=== PATIENT | female | born 1935 | race Caucasian/White ===

== ENCOUNTER 2016-10-08 14:29 | Emergency (ER) | payer OTHER, MEDICARE ==
[~2016-10-08 14:29] MED LIST: BETAPACE AF80 MG PO; COUMADIN2.5 MG PO; COZAAR50 MG PO; KEFLEX750 MG PO; LASIX40 MG PO; METOPROLOL SUC100 MG PO; NORCO1 TA1 PO; ZOCOR20 MG PO
--- NOTE | 2016-10-08 19:26 | DIAGNOSTIC IMAGING REPORT ---
PROCEDURE: XR CHEST 2 VIEW INDICATION: COUGH TECHNIQUE: Two views. COMPARISON: 02/25/2015 FINDINGS: There is a left-sided dual lead pacemaker in place, stable. The heart has slightly increased in size. There is aortic calcification of the arch. No central venous congestion. Lungs are clear. No pleural effusion or pneumothorax. Demineralized osseous structures. IMPRESSION: 1. Slight increase in mild cardiomegaly compared to previous study. 2. The lungs are clear.
--- NOTE | 2016-10-08 19:49 | ED CLINICAL REPORT ---
Clinical Report - Physicians/Mid Levels [facility] [address] [place] [address] 10/08/2016 14:30 Patient: JORDON DEVLIN Time Seen: 14:46. Arrived- By private vehicle. Historian- patient. HISTORY OF PRESENT ILLNESS Chief Complaint: COUGH. This started about 8 days ago and is still present. The illness is described as moderate. The patient has had a cough, nasal congestion and a nasal discharge. She has had moderate amounts of thick sputum. No difficulty breathing, chest discomfort or pain, fever or muscle aches. No chills, sore throat, hoarseness, sinus pressure or sinus drainage. No ear pain. (PT reports feeling somewhat fatigued.). Additional history - No known contact with a sick individual. Similar symptoms previously: Occasionally. Recent medical care: Not recently seen/assessed. REVIEW OF SYSTEMS No headache, eye discomfort, nausea, vomiting or diarrhea. No abdominal pain, hay fever, pedal edema, calf pain or difficulty with urination. No skin rash, enlarged lymph nodes or joint pain. All systems otherwise negative, except as recorded above. PAST HISTORY Problems: Hip Fracture. Diabetes Mellitus. Gastroesophageal Reflux Disease. Myocardial Infarction. Congestive Heart Failure. Pacemaker. Atrial Fibrillation. Hypertension. Coronary Artery Disease. Immunizations. Additional Surgeries: Angioplasty with Stents. Appendectomy. Cholecystectomy. Hip Surgery. Pacemaker. Medications: Sotalol HCl Oral 80 mg, 2x a day. Toprol XL Oral 100 mg, daily. Vit d. Zocor Oral 20 mg, daily. Calcium. Coumadin Oral (2 mg - M,W,F 2.5 mg - Tu,Yin,S,S). KCL 10 meq, daily. Lasix Oral. Losartan Potassium Oral 50 mg, daily. Protonix Oral. Allergies: Atolat. Probable Moderate (Unsure reaction) Oxycodone. Definite Moderate (Hallucinations/confusion). SOCIAL HISTORY Never smoker. No alcohol use or drug use. ADDITIONAL NOTES The nursing notes have been reviewed. PHYSICAL EXAM Vital Signs: 10/08/2016 14:56 BP: 139/111. HR: 67. RR: 16. O2 saturation: 98%. Temp: 98.8 F. Pain level now: 0/10. Have been reviewed. Appearance: Alert. No acute distress. Eyes: Pupils equal, round and reactive to light. Eyes normal inspection. ENT: Nose normal. Neck: Normal inspection. CVS: Normal heart rate and rhythm. Heart sounds normal. Pulses normal. Respiratory: No respiratory distress. Breath sounds normal. Abdomen: Soft and nontender. Back: Normal inspection. Skin: Skin warm and dry. Normal skin color. No rash. Normal skin turgor. Extremities: Extremities exhibit normal ROM. No lower extremity edema. Neuro: Oriented X 3. No motor deficit. No sensory deficit. LABS, X-RAYS, AND EKG EKG: No acute ischemia. Rate: 84. Atrial fibrillation. Occasional ectopic beats. Premature ventricular contractions. Abnormal P waves. Normal QRS complex. Normal axis. Normal QT and QTc. Non-specific ST segment / T wave abnormalities. Prior EKG unavailable. The study has been interpreted contemporaneously by me. The study has been independently viewed by me. The EKG appears to be a good tracing. I agree with and confirm the computer reading of the EKG. Rhythm Strip #1: Time: (1615). Rate= 92. Atrial fibrillation. Narrow QRS complexes. Irregularly irregular rhythm. No ectopy. Conduction normal. Normal ST segments and T waves. The study was interpreted by me. Chest X-ray: No acute disease. Normal lung markings present. Normal heart size. Mediastinum normal. Great vessels normal. Soft tissues normal. No infiltrate. No fracture. No bony lesion present. Views: PA and lateral. Technique: good. The X-rays were independently viewed by me, interpreted by the radiologist and contemporaneously by me and discussed with the radiologist. Prior films were not available for comparison. Laboratory Tests: UA-Culture if indicated: (BETH: 10/08/2016 16:00) ( MsgRcvd 10/08/2016 16:49) Final results Test Result Flag Units (Reference) URINE COLOR YELLOW URINE APPEARANCE CLEAR URINE GLUCOSE NEGATIVE (NEGATIVE) URINE BILIRUBIN NEGATIVE (NEGATIVE) URINE KETONE NEGATIVE (NEGATIVE) URINE SPECIFIC GRAVITY <= 1.005 L (1.010-1.030) URINE PH 7.0 (5.0-8.0) URINE PROTEIN NEGATIVE (NEGATIVE) URINE UROBILINOGEN 0.2 EU/dL (0.2-1.0) URINE NITRITE NEGATIVE (NEGATIVE) URINE BLOOD NEGATIVE (NEGATIVE) URINE LEUK ESTERASE NEGATIVE (NEGATIVE) URINE RBC 0-1 rbc/hpf (0-1) URINE WBC 0-1 wbc/hpf (0-1) URINE EPITHELIAL CELLS 1-3 EPI/hpf (0-5) URINE BACTERIA NONE SEEN (NONE SEEN) URINE COMMENT CULT NOT INDICATED URINE CULTURES ARE SET-UP BASED ON THE FOLLOWING CRITERIA:POSITIVE NITRITEPOSITIVE LEUKOCYTE ESTERASEGREATER THAN 10 WHITE BLOOD CELLSMODERATE (2+) OR GREATER BACTERIA CBC w Diff: (BETH: 10/08/2016 16:05) ( MsgRcvd 10/08/2016 16:33) Final results Test Result Flag Units (Reference) WHITE BLOOD COUNT 6.4 K/uL (4.5-11.5) RED BLOOD COUNT 5.09 M/uL (4.00-5.20) HEMOGLOBIN 15.1 gm/dL (12.0-16.0) HEMATOCRIT 45.6 % (36.0-46.0) MEAN CELL VOLUME 90 fL (80-100) MEAN CORPUSCULAR HGB 30 pg (26-34) MEAN CORPUSCULAR HGB CONC 33 g/dL (31-37) RED CELL DISTRIBUTION WIDTH 13.3 % (11.6-14.8) PLATELET COUNT 183 K/uL (150-400) NEUTROPHIL % 60.7 % (50-75) LYMPH % 25.9 % (25-40) MONO % 11.3 % (3-14) EOSINOPHIL % 1.8 % (0-4) BASOPHIL % 0.3 % (0-2) CHEM 13 PANEL: (BETH: 10/08/2016 16:05) ( MsgRcvd 10/08/2016 16:45) Final results Test Result Flag Units (Reference) GLUCOSE 101 mg/dL (70-110) BUN 20 H mg/dL (7-18) CREATININE 0.8 mg/dL (0.6-1.3) Estimated GFR >60 mL/min Estimated GFR- >60 mL/min Note: Persistent reduction over 3 months in eGFR<60 mL/min/1.73 m2 defines CKD. Patients with eGFR values>=60 mL/min/1.73 m2 may also have CKD if evidence ofpersistent proteinuria. Additional information may be foundat www.kidney.org. SODIUM 142 mmol/L (136-145) POTASSIUM 4.2 mmol/L (3.5-5.1) CHLORIDE 105 mmol/L (98-107) CARBON DIOXIDE 26 mmol/L (21-32) CALCIUM 9.0 mg/dL (8.5-10.1) TOTAL PROTEIN 6.8 g/dL (6.4-8.2) ALBUMIN 3.7 g/dL (3.3-5.0) BILIRUBIN, TOTAL 0.8 mg/dL (0.0-1.0) ALKALINE PHOSPHATASE 90 U/L (46-116) AST (SGOT) 34 U/L (15-37) ALT (SGPT) 34 U/L (12-78) CPK 47 U/L (24-260) MAGNESIUM 2.1 mg/dL (1.8-2.4) TROPONIN I <0.05 ng/mL (0.00-1.5) TROPONIN REFERENCE RANGE:<0.1 NEGATIVE0.1-1.5 INDETERMINANT>1.5 POSITIVE . Pulse Oximetry: 10/08/2016 14:56 O2 saturation: 98%. (FIO2 - room air). Interpretation: normal. PROGRESS AND PROCEDURES Course of Care: Pt was worked up for her cough and fatigue. Work-up was unremarkable. I suspected bronchitis, and pt was treated for this with Zithromax. No emergent condition identified. Patient and spouse counseled in person regarding the patient's stable condition, test results, diagnosis and need for follow-up. Concerns were addressed. Old medical records reviewed. Disposition: Discharged. Condition: stable. CLINICAL IMPRESSION Acute bacterial bronchitis. INSTRUCTIONS Drink plenty of fluids. Warnings: GENERAL WARNINGS: Return or contact your physician immediately if your condition worsens or changes unexpectedly, if not improving as expected, or if other problems arise. Your Current Medications: CONTINUE TAKING THE FOLLOWING MEDICATIONS: Calcium*. Coumadin Oral : 2 mg - M,W,F 2.5 mg - Tu,Yin,S,S. KCL : 10 meq daily. Lasix Oral. Losartan Potassium Oral : 50 mg daily. Protonix Oral. Sotalol HCl Oral : 80 mg 2x a day. Toprol XL Oral : 100 mg daily. Vit d*. Zocor Oral : 20 mg daily. Prescription Medications: Zithromax Z-John: Take according to package instructions 2 orally today, followed by 1 orally every day for the next 4 days. Total course 5 days. No refills. Substitution is permissible. Follow-up: Follow up with your doctor in seven days if not better. Call for an appointment. Understanding of the discharge instructions verbalized by patient. (Electronically signed by Patrizia Fleming MD 10/13/2016 5:59)
--- NOTE | 2016-10-08 19:49 | ED ORDER SUMMARY ---
..... Patient: JORDON DEVLIN OrderSheet [facility] VisitID: [id number] [address] [place] [address] 81y, F Registration Date/Time: 10/08/2016 ORDER SHEET Weight: 75.2 kg (stated) Allergies: Atolat, Oxycodone GENERAL ORDERS: Chancery Clerk (Continuous) (Chest Pain) (15:59 10/08/2016 Jesus R.N. verbal order read back to Anshu PHILLIPS) (15:59 Jesus R.N.) EKG - ER Stat (15:59 10/08/2016 Jesus R.N. verbal order read back to Anshu PHILLIPS) (16:24 Santo) UA-Culture if indicated Urgent (16:17 10/08/2016 Jesus R.N. verbal order read back to Anshu PHILLIPS) (16:39 Santo) Cardiac Panel Stat (16:18 10/08/2016 Jesus R.N. verbal order read back to Anshu PHILLIPS) (Ack 16:41 Santo) (17:56 Jesus R.N.) Chest 2V Urgent (17:42 10/08/2016 Anshu PHILLIPS) (17:51 Slim) MEDICATION ORDERS: Zithromax PO 500 mg (NOW) (18:56 10/08/2016 Anshu PHILLIPS) (Ack 19:02 JDeElena R.N.) (19:12 JDeElena R.N.) IV FLUIDS: IV Saline Lock (15:59 10/08/2016 Jesus R.N. verbal order read back to Anshu PHILLIPS) (16:17 Jesus R.N.) ORDER SHEET NOTES: [Electronically signed by Carolyn Hobbs (23:27 10/08/2016)] [Electronically signed by Patrizia Fleming MD (05:59 10/13/2016)] [Electronically locked/signed by Carolyn Hobbs (23:27 10/08/2016)]
--- NOTE | 2016-10-08 19:49 | ED NURSING NOTES ---
Clinical Report - Nurses [facility] [address] [place] [address] 10/08/2016 14:30 [id number] Triage time 14:56 Oct 08 2016. Acuity: LEVEL 3. Chief Complaint: COUGH. Alert. ABDELRAHMAN COMA SCORE: Abdelrahman Coma Scale: 15- eyes open spontaneously (4); best verbal response- oriented x 4 (5); best motor response- obeys commands (6). --15:08 Don Perez R.N. 14:56 10/08/16. BP: 139/111. HR: 67 (irregularly-irregular and normal rate). RR: 16. O2 saturation: 98% on room air. Temp: 98.8 F (oral). Pain level now: 0/10. --15:08 Don Perez R.N. 15:15 10/08/16. BP: 131/78. Additional comments: Repeat check on BP. --15:16 Don Perez R.N. Weight: 75.2 kg stated. Height/Length: 64.5 inches Per Patient. BMI: 28. --14:59 Don Perez R.N. Medications Calcium. Coumadin Oral (2 mg - M,W,F 2.5 mg - Tu,Yin,S,S). KCL 10 meq, daily. Lasix Oral. Losartan Potassium Oral 50 mg, daily. Protonix Oral. --15:04 Don Perez R.N. Sotalol HCl Oral 80 mg, 2x a day. Toprol XL Oral 100 mg, daily. Vit d. Zocor Oral 20 mg, daily. --15:04 Don Perez R.N. Allergies Atolat. Probable Moderate (Unsure reaction) --15:04 Don Perez R.N. Oxycodone. Definite Moderate (Hallucinations/confusion) --15:04 Don Perez R.N. Medication/allergy information source: the patient. --15:08 Ana, Don, R.N. History ( Cough for the last 8 days and some chest pain on the (R) lower chest, which resolved after she took 2 sequential NTG SL tabs.). Onset. (about 8 days ago). She has had fatigue and a headache. ( Cough). Treatment ACCOUNT ANALYST: (NTG x 2 SL). PAST MEDICAL HX: Immunizations: status is unknown. The patient is post-menopausal. SOCIAL HX: Never smoker. No alcohol use or drug use. No infectious disease exposure. ABUSE ASSESSMENT: No report of abuse. FALL RISK ASSESSMENT: Fall risk assessment completed. No fall risk identified. NUTRITIONAL RISK ASSESSMENT: The nutritional risk assessment revealed no deficiencies. FUNCTIONAL ASSESSMENT: Functional assessment: no impairments noted. LEARNING NEEDS ASSESSMENT: The learning needs assessment revealed no barriers. SKIN INTEGRITY ASSESSMENT: Skin integrity risk assessment completed. No skin integrity risk identified. --15:08 Don Perez R.N. PROBLEMS: Hip Fracture. Prior Injury, Same Area. Diabetes Mellitus. Gastroesophageal Reflux Disease. Myocardial Infarction. Congestive Heart Failure. Pacemaker. Atrial Fibrillation. Hypertension. Coronary Artery Disease. Arrhythmia. Heart Disease. Immunizations. --15:07 Don Perez R.N. ADDITIONAL SURGERIES: Angioplasty with Stents. Appendectomy. Cholecystectomy. Hip Surgery. Pacemaker. --15:07 Don Perez R.N. Interventions ID band on patient. To treatment room. --15:08 Don Perez R.N. PHYSICAL ASSESSMENT Ambulatory to room. GENERAL / NEURO / PSYCH: Alert. Oriented X 4. HEENT: Voice within normal limits. Mucous membranes are pink. RESPIRATORY: Respirations not labored. CVS: Cardiac rhythm: atrial fibrillation. Capillary refill less than 2 seconds. SKIN: Skin is warm and dry. Normal skin turgor. --15:08 Don Perez R.N. NURSING PROGRESS NOTES Patient gowned. Reassurance given. Patient identifiers checked. Call light placed in reach. Side rails up x 1. Bed placed in lowest position. Brakes of bed on. Patient ready for evaluation- chart flagged and ED physician notified. --15:09 Don Perez R.N. 16:05 10/08/2016 Site #1 started via IV in the right hand with an 20g angiocath, with aseptic technique and good blood return; one attempt. Blood drawn: rainbow set. Labeled in the presence of the patient and sent to the lab. Saline lock flushed with 10 mL saline. --16:17 Don Perez R.N. 16:10 10/08/16. Patient ID band checked for patient name, birthdate and medical record number: patient confirmed. Instructions provided to collect clean catch urine and patient verbalized understanding. Clean catch urine collected with return of yellow-colored clear urine; odor is normal; sample sent to lab for urinalysis and culture. Specimen labeled in the presence of the patient. --16:35 Don Perez R.N. 16:15. Patient ID band checked for patient name and birthdate: patient confirmed urine collected with return of yellow-colored clear urine; odor is normal; sample sent to lab for urinalysis and culture. Specimen labeled in the presence of the patient. --16:42 Rosi Brooks 16:30 10/08/16. BP: 116/71. HR: 83 (irregularly-irregular). RR: 19. O2 saturation: 97% on room air. Pain level now: 0/10. --18:34 Don Perez R.N. 17:15 10/08/16. BP: 140/76. HR: 89 (irregularly-irregular). RR: 18. O2 saturation: 96% on room air. Pain level now: 0/10. --18:35 Don Perez R.N. 18:15 10/08/16. BP: 145/92. HR: 117 (irregularly-irregular). RR: 16. O2 saturation: 98% on room air. Pain level now: 0/10. --18:37 Don Perez R.N. Care transferred and report received (Don, RN). --19:02 Luis Mays R.N. 19:12 10/08/2016 Zithromax PO Tablets 500 mg given. Allergies verified and confirmed 5 rights. --19:12 Luis Mays R.N. The patient is calm and resting quietly. GENERAL / NEURO / PSYCH: Alert. Appears in no acute distress. [place] Coma Scale: 15- eyes open spontaneously (4); best verbal response- oriented x 4 (5); best motor response- obeys commands (6). Oriented X 4. The patient is cooperative. RESPIRATORY: No respiratory distress. Breath sounds normal. CVS: Abnormal heart sounds: (Irregularly-regualr). SKIN: Skin is warm and dry. Skin color is within normal limits for race. --19:15 Luis Mays R.N. 19:12 10/08/16. BP: 159/100 (regular adult cuff) taken on the left arm, via an automated monitor, while lying. HR: 80 (irregular and normal rate). RR: 16 (regular, unlabored and normal). O2 saturation: 98% on room air. --19:15 Luis Mays R.N. DISPOSITION / DISCHARGE 20:01 10/08/16. Condition at departure: stable. No learning barriers present. Reviewed medication(s) side effects, precautions, dosing and course information. Prescription(s) given to the patient. Reviewed need for increased fluid intake. Patient and spouse verbalized understanding. Written instructions provided in Georgian. ( Follow up with PCP in one week. Return if symptoms worsen. Reviewed allergic reaction symptoms.). The patient was discharged by the physician. She was discharged home and accompanied by spouse. She left the Emergency Department ambulatory and via private vehicle. Spouse driving. --23:01 Carolyn Hobbs 20:00 10/08/16. BP: 150/80. HR: 86. RR: 20. O2 saturation: 99% on room air. Temp: 98.8 F. Pain level now: 0/10. --23:01 Carolyn Hobbs 20:01 10/08/2016 Site #1 removed upon discharge. Catheter intact. Bandaid applied. --23:01 Carolyn Hobbs 20:01 10/08/16. The goals identified in the patient's plan of care were met. FALL RISK ASSESSMENT: Fall risk assessment completed. No fall risk identified. --23:01 Carolyn Hobbs. Locked/Released at 10/08/2016 23:27 by Carolyn Hobbs,
--- NOTE | 2016-10-08 19:49 | ED ORDER SUMMARY ---
..... Patient: JORDON DEVLIN OrderSheet [facility] VisitID: [id number] [address] [place] [address] 81y, F Registration Date/Time: 10/08/2016 ORDER SHEET Weight: 75.2 kg (stated) Allergies: Atolat, Oxycodone GENERAL ORDERS: Rotor Assembler (Continuous) (Chest Pain) (15:59 10/08/2016 Jesus R.N. verbal order read back to Anshu PHILLIPS) (15:59 Jesus R.N.) EKG - ER Stat (15:59 10/08/2016 Jesus R.N. verbal order read back to Anshu PHILLIPS) (16:24 Santo) UA-Culture if indicated Urgent (16:17 10/08/2016 Jesus R.N. verbal order read back to Anshu PHILLIPS) (16:39 Santo) Cardiac Panel Stat (16:18 10/08/2016 Jesus R.N. verbal order read back to Anshu PHILLIPS) (Ack 16:41 Santo) (17:56 Jesus R.N.) Chest 2V Urgent (17:42 10/08/2016 Anshu PHILLIPS) (17:51 Slim) MEDICATION ORDERS: Zithromax PO 500 mg (NOW) (18:56 10/08/2016 Anshu PHILLIPS) (Ack 19:02 JDeElena R.N.) (19:12 JDeElena R.N.) IV FLUIDS: IV Saline Lock (15:59 10/08/2016 Jesus R.N. verbal order read back to Anshu PHILLIPS) (16:17 Jesus R.N.) ORDER SHEET NOTES: [Electronically signed by Carolyn Hobbs (23:27 10/08/2016)] [Electronically signed by Patrizia Fleming MD (05:59 10/13/2016)] [Electronically locked/signed by Carolyn Hobbs (23:27 10/08/2016)]
--- NOTE | 2016-10-13 05:59 | ED MAR SUMMARY ---
..... Medication Administration Record [facility] [address] [place] [address] Patient: JORDON DEVLIN Visit ID: [id number] 81y, F Weight: 75.2 kg Height/Length: 64.5 in BMI: 28 ALLERGIES: Oxycodone, Atolat Given 19:12 10/08/2016 Luis Mays R.N. Medication Administered: ZITHROMAX [PO], Dose: 500 mg Tablets PO. Medication Ordered: Zithromax PO 500 mg (NOW).
--- NOTE | 2016-10-13 05:59 | ED MAR SUMMARY ---
..... Medication Administration Record [facility] [address] [place] [address] Patient: JORDON DEVLIN Visit ID: [id number] 81y, F Weight: 75.2 kg Height/Length: 64.5 in BMI: 28 ALLERGIES: Oxycodone, Atolat Given 19:12 10/08/2016 Luis Mays R.N. Medication Administered: ZITHROMAX [PO], Dose: 500 mg Tablets PO. Medication Ordered: Zithromax PO 500 mg (NOW).
--- NOTE | 2016-10-13 05:59 | ED MED RECONCILIATION SUMMARY ---
Patient: JORDON DEVLIN Medication Reconciliation Report [facility] VisitID: [id number] [address] [place] [place] [address] 81y, F Registration Date/Time: 10/08/2016 Weight: 75.2 kg Height/Length: (not available) BMI: 28.0 ALLERGIES: Atolat, Oxycodone The patient's Home Medications are listed below: CONTINUE TAKING THE FOLLOWING MEDICATIONS: Calcium Coumadin Oral, 2 mg - M,W,F2.5 mg - Tu,Yin,S,S KCL 10 meq, daily Lasix Oral Losartan Potassium Oral 50 mg, daily Protonix Oral Sotalol HCl Oral 80 mg, 2x a day Toprol XL Oral 100 mg, daily Vit d Zocor Oral 20 mg, daily The source(s) of the original Home Medication information: patient The following Medications were given to the patient in the Emergency Department: Zithromax [PO] PO 500 mg, administered: 10/08/2016 7:12:00 PM The following Medications were prescribed to the patient: Zithromax Z-John: Take according to package instructions 2 orally today, followed by 1 orally every day for the next 4 days. Total course 5 days. No refills. Substitution is permissible. -- Patrizia Fleming MD
--- NOTE | 2016-10-13 05:59 | ED MED RECONCILIATION SUMMARY ---
Patient: JORDON DEVLIN Medication Reconciliation Report [facility] VisitID: [id number] [address] [place] [address] 81y, F Registration Date/Time: 10/08/2016 Weight: 75.2 kg Height/Length: (not available) BMI: 28.0 ALLERGIES: Atolat, Oxycodone The patient's Home Medications are listed below: CONTINUE TAKING THE FOLLOWING MEDICATIONS: Calcium Coumadin Oral, 2 mg - M,W,F2.5 mg - Tu,Yin,S,S KCL 10 meq, daily Lasix Oral Losartan Potassium Oral 50 mg, daily Protonix Oral Sotalol HCl Oral 80 mg, 2x a day Toprol XL Oral 100 mg, daily Vit d Zocor Oral 20 mg, daily The source(s) of the original Home Medication information: patient The following Medications were given to the patient in the Emergency Department: Zithromax [PO] PO 500 mg, administered: 10/08/2016 7:12:00 PM The following Medications were prescribed to the patient: Zithromax Z-John: Take according to package instructions 2 orally today, followed by 1 orally every day for the next 4 days. Total course 5 days. No refills. Substitution is permissible. -- Patrizia Fleming MD
--- NOTE | 2016-10-13 05:59 | ED DISCHARGE INSTRUCTIONS ---
Patient: JORDON DEVLIN General Instructions [facility] VisitID: [id number] [place] [address] 81y, F Registration Date/Time: 10/08/2016 Acute bacterial bronchitis. INSTRUCTIONS Drink plenty of fluids. Warnings: GENERAL WARNINGS: Return or contact your physician immediately if your condition worsens or changes unexpectedly, if not improving as expected, or if other problems arise. Your Current Medications: CONTINUE TAKING THE FOLLOWING MEDICATIONS: Calcium*. Coumadin Oral : 2 mg - M,W,F 2.5 mg - Tu,Yin,S,S. KCL : 10 meq daily. Lasix Oral. Losartan Potassium Oral : 50 mg daily. Protonix Oral. Sotalol HCl Oral : 80 mg 2x a day. Toprol XL Oral : 100 mg daily. Vit d*. Zocor Oral : 20 mg daily. Prescription Medications: Zithromax Z-John: Take according to package instructions 2 orally today, followed by 1 orally every day for the next 4 days. Total course 5 days. No refills. Substitution is permissible. Follow-up: Follow up with your doctor in seven days if not better. Call for an appointment. Understanding of the discharge instructions verbalized by patient. ADDITIONAL INFORMATION Bronchitis (Adult: Abx Tx) BRONCHITIS is an infection of the air passages (bronchial tubes). It often occurs during the common cold. Symptoms include cough with mucus (phlegm) and low-grade fever. Bronchitis usually lasts 7-14 days. Mild cases can be treated with simple home remedies. More severe infection is treated with an antibiotic. Home Care: If symptoms are severe, rest at home for the first 2-3 days. When you resume activity, don't let yourself get too tired. Do not smoke. Avoid being exposed to the smoke of others. You may use acetaminophen (Tylenol) or ibuprofen (Motrin, Advil) to control fever or pain, unless another medicine was prescribed for this. [NOTE: If you have chronic liver or kidney disease or ever had a stomach ulcer or GI bleeding, talk with your doctor before using these medicines.] Your appetite may be poor, so a light diet is fine. Avoid dehydration by drinking 6-8 glasses of fluids per day (water, soft, drinks, juices, tea, soup, etc.). Extra fluids will help loosen secretions in the lungs. Dvwd-yjj-yqaetbd cough medicines that containdextromethorphan(such as Robitussin DM) and decongestants (Actifed or Sudafed) may help relieve cough and congestion. [NOTE: Do not use decongestants if you have high blood pressure.] Finish all antibiotic medicine, even if you are feeling better after only a few days. Follow Up with your doctor or as directed if you dont start to feel better after three days. [NOTE: If you are age 65 or older, or if you have chronic asthma or COPD, we recommend a PNEUMOCOCCAL VACCINATION every five years and a yearly INFLUENZAVACCINATION (FLU-SHOT) every . Ask your doctor about this. If you had an X-ray, a radiologist will review it. You will be notified of any new findings that may affect your care.] Get Prompt Medical Attention if any of the following occur: Fever over 100.4F (38.0C) for more than three days Trouble breathing, wheezing or pain with breathing Coughing up blood or increased amounts of colored sputum Weakness, drowsiness, headache, facial pain, ear pain or a stiff neck You have been given the following additional information: Bronchitis, Antiobiotic Treatment (Adult) (Electronically signed by Patrizia Fleming MD 10/13/2016 5:59)
== END 2016-10-08 20:00 | disposition home or self-care (01) ==
LOC: ED SRH 14:29
DX: J20.8 Acute bronchitis due to other specified organisms (principal); Z88.8 Allergy status to other drugs, medicaments and biological substances; I48.91 Unspecified atrial fibrillation; I50.9 Heart failure, unspecified; I25.2 Old myocardial infarction; E11.9 Type 2 diabetes mellitus without complications; Z95.0 Presence of cardiac pacemaker; Z79.01 Long term (current) use of anticoagulants; Z79.899 Other long term (current) drug therapy; Z88.5 Allergy status to narcotic agent
CPT/HCPCS: 90004; 90100; 90616; 92610; 92720; 95059

== ENCOUNTER 2016-10-20 11:49 | Outpatient (CLI) | payer OTHER, MEDICARE ==
--- NOTE | 2016-10-20 12:14 | DIAGNOSTIC IMAGING REPORT ---
PROCEDURE: XR CHEST 2 VIEW INDICATION: BRONCHITIS TECHNIQUE: PA and lateral view. COMPARISON: Chest x-ray 10/08/2016 FINDINGS: Lungs are clear. Left-sided dual lead pacemaker. Stable mild cardiomegaly. Mediastinum and pulmonary vascularity are normal. Mild degenerative changes of the spine. IMPRESSION: 1. No acute changes 2. Pacemaker with stable mild cardiomegaly
== END 2016-10-20 23:00 ==
LOC: XR SRH 11:49
DX: J20.9 Acute bronchitis, unspecified (principal); Z95.0 Presence of cardiac pacemaker